=== PATIENT | male | born 1945 | race African-American/Black ===

== ENCOUNTER 2022-02-09 04:10 | Day surgery (SDC) | payer OTHER ==
[2022-02-07 15:34] VITALS: BMI 28.0
[2022-02-09] MEDS ORDERED: MIDAZOLAM HCL 2 MG/2 ML SINGLE DOSE VIAL ONE (14:02)
[2022-02-09] MEDS ORDERED: ceFAZolin SODIUM 1 GM VIAL IVPB ONE (14:32)
[2022-02-09] MEDS ORDERED: LIDOCAINE HCL 2% JELLY 10 ML CARTRIDGE ONE (14:33)
[2022-02-09] MEDS ORDERED: SUCCINYLCHOLINE CHLORIDE 200 MG/10 ML SYRINGE ONE (14:45)
[2022-02-09] MEDS ORDERED: LIDOCAINE HCL 2% JELLY 10 ML CARTRIDGE TP ONE (15:05)
[2022-02-09] MEDS ORDERED: ONDANSETRON 4 MG/2 ML VIAL IVPUSH PRN (15:20)
[2022-02-09] MEDS ORDERED: ACETAMINOPHEN 1000 MG/100 ML BAG IVPB ONE (15:20)
[2022-02-09] MEDS ORDERED: DEXMEDETOMIDINE HCL 200 MCG/2 ML IVPB ONE (15:22)
[2022-02-09] MEDS ORDERED: ACETAMINOPHEN INJECTION 100 ML IVPB ONE (15:25)
[2022-02-09 17:25] VITALS: RESP 18
[2022-02-09 18:26] VITALS: TEMP 97.8
[2022-02-09 19:11] VITALS: BP 149/78; PULSE 60
== END 2022-02-09 19:20 | disposition home or self-care (01) ==
LOC: JASU-SURG 04:10 → EDSTATUS 14:00 → JASU-SURG 19:20
PROVIDERS: ATTEND Urology
PROC: 0VT08ZZ Resection of Prostate, Via Natural or Artificial Opening Endoscopic (ICD-10-PCS; principal; 2022-02-09 13:30)
DX: N40.1 Benign prostatic hyperplasia with lower urinary tract symptoms (principal); R33.8 Other retention of urine; N13.8 Other obstructive and reflux uropathy; I12.9 Hypertensive chronic kidney disease with stage 1 through stage 4 chronic kidney disease, or unspecified chronic kidney disease; E11.22 Type 2 diabetes mellitus with diabetic chronic kidney disease; N18.9 Chronic kidney disease, unspecified
CPT/HCPCS: 88305-TC; 94760